=== PATIENT | male | born 1990 | race Caucasian/White ===

== ENCOUNTER 2024-11-17 13:22 | Emergency (ER) | payer OTHER ==
[~2024-11-17] VITALS: Ht 172.7 cm; Wt 77.0 kg
[2024-11-17 13:33] VITALS: O2SAT 99
[2024-11-17 13:38] VITALS: BP 132/82; PULSE 60; RESP 18; TEMP 36.7; O2SAT 98
[2024-11-17] MEDS ORDERED: IBUP-2029 PO (16:53)
[2024-11-17] MEDS: LIDOCAINE HCL/PF 1% 10 MG/ML 5ML VIAL INFIL ONE (17:20)
[2024-11-17] MEDS: BACITRACIN ZINC OINT UDPKT TOP ONE (17:21)
== END 2024-11-17 17:30 | disposition home or self-care (01) ==
LOC: ER 13:22
DX: S61.011A Laceration without foreign body of right thumb without damage to nail, initial encounter (principal); I10 Essential (primary) hypertension; X58.XXXA Exposure to other specified factors, initial encounter; Y93.89 Activity, other specified; Y92.89 Other specified places as the place of occurrence of the external cause; Y99.8 Other external cause status
CPT/HCPCS: 99283; 73140; 12001; J2003

== ENCOUNTER 2024-11-20 13:18 | Emergency (ER) | payer MEDICAID, OTHER ==
[~2024-11-20] VITALS: Ht 172.7 cm; Wt 77.0 kg
[~2024-11-20 13:18] MED LIST: IBUP-2029 PO
[2024-11-20 13:31] VITALS: O2SAT 99
[2024-11-20 15:31] VITALS: BP 133/76; PULSE 60; RESP 16; TEMP 36.9; O2SAT 100
== END 2024-11-20 15:40 | disposition home or self-care (01) ==
LOC: ER 13:18
DX: S61.011D Laceration without foreign body of right thumb without damage to nail, subsequent encounter (principal); Z48.00 Encounter for change or removal of nonsurgical wound dressing; X58.XXXD Exposure to other specified factors, subsequent encounter
CPT/HCPCS: 99282